=== PATIENT | female | born 1960 | race Caucasian/White ===

== ENCOUNTER 2023-02-10 10:10 | Emergency (ER) | payer MEDICARE, BC ==
[~2023-02-10] VITALS: Ht 160 cm; Wt 84.1 kg
[2023-02-10 10:52] VITALS: BP 114/78
== END 2023-02-11 02:37 | disposition left against medical advice (07) ==
LOC: ER 10:10
DX: M54.16 Radiculopathy, lumbar region (principal); G89.29 Other chronic pain; M54.50 Low back pain, unspecified
CPT/HCPCS: 99281

== ENCOUNTER 2025-02-02 05:30 | Day surgery (SDC) | payer MEDICARE, BC ==
[2025-01-28 15:33] LABS: BASOPHILS # (AUTO) 0.1 X10'3 (0-0.2); BASOPHILS % (AUTO) 0.7 % (0-1); EOSINOPHILS # (AUTO) 0.2 X10'3 (0-0.9); EOSINOPHILS % (AUTO) 1.5 % (0-6); LYMPHOCYTES # (AUTO) 2.4 X10'3 (1.1-4.8); LYMPHOCYTES % (AUTO) 15.7 % (21-51); MEAN CORPUSCULAR HEMOGLOBIN 29.9 PG (27.0-31.0); MEAN CORPUSCULAR HGB CONC 32.8 g/dL (33.0-36.5); MEAN PLATELET VOLUME 7.1 FL (7.4-10.4); MONOCYTES # (AUTO) 1.1 X10'3 (0-0.9); MONOCYTES % (AUTO) 7.6 % (2-12); NEUTROPHILS # (AUTO) 11.1 X10'3 (1.8-7.7); NEUTROPHILS % (AUTO) 74.5 % (42-75); PRE OP HEMATOCRIT 40.4 % (35.0-45.0); PRE OP HEMOGLOBIN 13.3 g/dL (12.0-16.0); PRE OP PLATELET COUNT 364 X10'3 (140-440); RED BLOOD COUNT 4.44 X10'6 (4.20-5.60); RED CELL DISTRIBUTION WIDTH 14.9 % (11.5-14.5)
[2025-01-28 15:52] LABS: ALBUMIN 3.5 G/DL (3.4-5.0); ALBUMIN/GLOBULIN RATIO 0.9 (1.1-1.5); ALKALINE PHOSPHATASE 159 IU/L (46-116); BLOOD UREA NITROGEN 23 MG/DL (7-18); BUN/CREATININE RATIO 29.1 (10.0-20.0); CALCIUM 8.5 MG/DL (8.5-10.1); CHLORIDE 105 MMOL/L (99-107); CREATININE 0.79 MG/DL (0.40-0.90); PRE OP ALT 73 U/L (30-65); PRE OP ANION GAP 4 (8-16); PRE OP AST 59 U/L (10-37); PRE OP BILIRUB, TOTAL 0.3 MG/DL (0.0-1.0); PRE OP GLUCOSE 82 MG/DL (70-104); PRE OP SODIUM 140 MMOL/L (135-145); TOTAL CARBON DIOXIDE 30.9 MMOL/L (24-32); TOTAL PROTEIN 7.3 G/DL (6.4-8.2); eGFR 73 ML/MIN
[~2025-02-02] VITALS: Ht 160 cm; Wt 63.7 kg
[2025-02-02] VITALS (11 sets, daily range): BP systolic 119–153; BP diastolic 61–109; PULSE 63–74; RESP 11–16; TEMP 97.4; O2SAT 96–100
[~2025-02-02 05:30] MED LIST: ALPR2TAB9 PO; DESV50TA3 PO; ESTR1TAB28 PO; HYDR-3972 PO; RIME75TA PO; TRAZ-256 PO; ZOLP-679 PO
[2025-02-02] MEDS: famotidine 20mg tablet PO ONE (06:04)
[2025-02-02] MEDS: ringers solution, lacted 1,000 ML IV SCH ×2 (06:07→08:15)
[2025-02-02] MEDS: ceFAZolin 2gm in dextrose, iso 50 ML IV ONE (06:07)
[2025-02-02] MEDS ORDERED: LIDOcaine 1% (10mg/ml)w/preservative inj. 20ml MDV ONE (06:48)
[2025-02-02] MEDS ORDERED: BUPIVAcaine/PF 2.5mg/ml (0.25%) 10ml vial ONE (06:48)
[2025-02-02] MEDS ORDERED: sevoflurane 250ml liquid IH ONE (07:30)
[2025-02-02] MEDS ORDERED: fentaNYL/PF 50MCG/1 ML 2ML syringe ONE (07:35)
[2025-02-02] MEDS ORDERED: midazolam 1 mg/ML 2ml injection ONE (07:35)
[2025-02-02] MEDS ORDERED: rocuronium 10mg/ml inj IV ONE (07:54)
[2025-02-02] MEDS ORDERED: LIDOcaine 2% (20mg/ml) 5ml vial ONE (07:54)
[2025-02-02] MEDS ORDERED: dexamethasone sod phosphate 4mg/ml inj. ONE (07:54)
[2025-02-02] MEDS ORDERED: propofol inj 20 ML IV ONE (07:54)
[2025-02-02] MEDS ORDERED: ondansetron/PF 4mg/2ml inj ONE (07:54)
[2025-02-02] MEDS: BUPIVAcaine/PF 2.5mg/ml (0.25%) 10ml vial IJ ONE (08:00)
[2025-02-02] MEDS ORDERED: meperidine/PF 25mg/ml syringe IV PRN ×3 (08:15)
[2025-02-02] MEDS ORDERED: proCHLORperazine 10 MG/2 ml inj IV PRN (08:15)
[2025-02-02] MEDS ORDERED: labetalol 20mg/4ml (5mg/ml) syringe IV PRN (08:15)
[2025-02-02] MEDS ORDERED: ondansetron/PF 4mg/2ml inj IV PRN (08:15)
[2025-02-02] MEDS ORDERED: enalaprilat 1.25mg/ml 2ml vial IV PRN (08:15)
[2025-02-02] MEDS ORDERED: acetaminophen 1,000mg/100ml IV 100 ML IV ONE (08:35)
[2025-02-02] MEDS ORDERED: bacitracin 15gm ointment TP ONE (08:57)
[2025-02-02] MEDS: bacitracin 15gm ointment TP ONE (08:57)
[2025-02-02] MEDS: morphine 4 MG/ML inj SYRINge IV PRN (09:27)
[2025-02-02] MEDS: morphine 2 MG/ML inj. syringe IV PRN (09:41)
[2025-02-02] MEDS: oxyCODONE/APAP 5-325mg tablet PO PRN (10:39)
== END 2025-02-02 10:45 | disposition home or self-care (01) ==
LOC: PAS 05:30
PROVIDERS: ATTEND Surgery
DX: L05.92 Pilonidal sinus without abscess (principal); Z79.899 Other long term (current) drug therapy; G43.909 Migraine, unspecified, not intractable, without status migrainosus; F32.A Depression, unspecified; Z90.710 Acquired absence of both cervix and uterus; Z90.49 Acquired absence of other specified parts of digestive tract; F41.8 Other specified anxiety disorders; Z91.09 Other allergy status, other than to drugs and biological substances; Z98.890 Other specified postprocedural states; K21.9 Gastro-esophageal reflux disease without esophagitis; F41.9 Anxiety disorder, unspecified; Z90.3 Acquired absence of stomach [part of]
CPT/HCPCS: 11772; 15734; 36415; 80053; 82948; 85025; 93005; A4215; A4618; A6253; A6402; A7000; J0131; J0690; J1100; J2003; J2250; J2270; J2405; J2704; J2710; J3010; J3490; J7030; J7120; Z7506; Z7508; Z7512; Z7610; 88304; A6449

== ENCOUNTER 2025-03-22 14:47 | Emergency (ER) | payer MEDICARE, BC ==
[~2025-03-22] VITALS: Ht 160 cm; Wt 62.2 kg
[2025-03-22 14:57] VITALS: BP 135/84; PULSE 76; RESP 18; TEMP 97.6; O2SAT 97
== END 2025-03-22 15:30 | disposition left against medical advice (07) ==
LOC: ER 14:47
DX: R10.9 Unspecified abdominal pain (principal); R11.0 Nausea; Z88.8 Allergy status to other drugs, medicaments and biological substances; Z53.21 Procedure and treatment not carried out due to patient leaving prior to being seen by health care provider